=== PATIENT | female | born 1995 | race Caucasian/White ===

== ENCOUNTER 2016-09-11 00:19 | Emergency (ER) | payer MEDICAID ==
[~2016-09-11] VITALS: Ht 165.1 cm; Wt 91.0 kg
[~2016-09-11 00:19] MED LIST: LITH150C PO; SERT25TA PO; ZIPR60CA2 PO
[2016-09-11] MEDS ORDERED: ONDANSETRON 2MG/ML, 2ML ONE (00:49)
[2016-09-11] MEDS ORDERED: ONDANSETRON 2MG/ML, 2ML IVPush ONE (01:00)
[2016-09-11] MEDS ORDERED: SODIUM CHLORIDE 0.9% 1,000ML IVBOLUS ONE (01:00)
[2016-09-11 01:24] LABS: HCG UR OBC PASS
[2016-09-11 01:34] LABS: BLOOD UREA NITROGEN 17 mg/dL (7-18)
[2016-09-11 01:39] LABS: ASPARTATE AMINO TRANSFERASE 12 U/L (15-37)
[2016-09-11 03:24] VITALS: BP 109/63
== END 2016-09-11 03:28 | disposition home or self-care (01) ==
LOC: ED 01:02
DX: R19.7 Diarrhea, unspecified (principal); R11.2 Nausea with vomiting, unspecified; F17.200 Nicotine dependence, unspecified, uncomplicated; K21.9 Gastro-esophageal reflux disease without esophagitis
CPT/HCPCS: 36415; 80053; 81001; 81025; 83690; 85025; 96361; 96374; 99285; J2405; J7030

== ENCOUNTER 2016-11-14 20:54 | Emergency (ER) | payer MEDICAID ==
[~2016-11-14] VITALS: Ht 165.1 cm; Wt 88.4 kg
[2016-11-14 21:06] VITALS: BP 121/79
[2016-11-14 21:49] LABS: DAU SCREEN DISCLAIMER
[2016-11-14] MEDS ORDERED: LORazepam 1MG TABLET PO ONE (22:00)
[2016-11-14 22:07] LABS: ASPARTATE AMINO TRANSFERASE 22 U/L (15-37); BLOOD UREA NITROGEN 18 mg/dL (7-18)
[2016-11-14] MEDS ORDERED: LORazepam 1MG TABLET ONE (22:08)
[2016-11-14 22:14] LABS: ACETAMINOPHEN < 2 mcg/mL (10-30)
[2016-11-14] MEDS ORDERED: FAMOTIDINE 20 MG TABLET PO ONE (22:30)
[2016-11-14] MEDS ORDERED: FAMOTIDINE 20 MG TABLET ONE (22:30)
== END 2016-11-15 02:17 | disposition home or self-care (01) ==
LOC: ED 23:38
DX: F29 Unspecified psychosis not due to a substance or known physiological condition (principal); F41.9 Anxiety disorder, unspecified; Z72.89 Other problems related to lifestyle; F31.9 Bipolar disorder, unspecified
CPT/HCPCS: 36415; 80053; 80307; 80329; 84703; 85025; 99284; G0480

== ENCOUNTER 2017-03-10 12:58 | Emergency (ER) | payer MEDICAID ==
[~2017-03-10] VITALS: Ht 165.1 cm; Wt 91.8 kg
[2017-03-10 13:00] VITALS: BP 113/72
[2017-03-10] MEDS ORDERED: BACITRACIN ZINC OINT 500U/GM, 0.9 GM ONE (13:48)
== END 2017-03-10 13:55 | disposition home or self-care (01) ==
LOC: ED 13:49
DX: L03.115 Cellulitis of right lower limb (principal)
CPT/HCPCS: 99283

== ENCOUNTER 2017-03-25 09:12 | Emergency (ER) | payer MEDICAID ==
[~2017-03-25] VITALS: Ht 165.1 cm; Wt 92.6 kg
[2017-03-25] MEDS ORDERED: METOCLOPRAMIDE 5 MG/ML, 2ML IVPush ONE (10:00)
[2017-03-25] MEDS ORDERED: SODIUM CHLORIDE 0.9% 1,000ML IVBOLUS ONE (10:00)
[2017-03-25] MEDS ORDERED: MORPHINE SULFATE 4 MG/ML, 1ML IVPush PRN (10:00)
[2017-03-25] MEDS ORDERED: MAALOX/HYOSCYAMINE/LIDOCAINE 45 ML BTL PO ONE (10:00)
[2017-03-25] MEDS ORDERED: FAMOTIDINE 20 MG/2 ML IVP ONE (10:00)
[2017-03-25] MEDS ORDERED: DIPHENHYDRAMINE 50 MG/ML, 1ML IVPush ONE (10:00)
[2017-03-25] MEDS ORDERED: SODIUM CHLORIDE FLUSH 10ML SYR IVF ONE (10:00)
[2017-03-25 10:02] LABS: ASPARTATE AMINO TRANSFERASE 18 U/L (15-37); BLOOD UREA NITROGEN 16 mg/dL (7-18); HEMATOCRIT 43.4 % (34.6-47.8); HEMOGLOBIN 14.7 g/dL (11.7-16.4); WHITE BLOOD COUNT 13.3 x10^3/uL (3.4-10)
[2017-03-25 10:15] VITALS: BP 111/67
== END 2017-03-25 11:13 | disposition home or self-care (01) ==
LOC: ED 09:46
DX: K29.00 Acute gastritis without bleeding (principal); K21.9 Gastro-esophageal reflux disease without esophagitis
CPT/HCPCS: 36415; 76700; 80053; 83690; 85025; 86677; 96361; 96374; 96375; 99285; J1200; J2765; J7030; S0028

== ENCOUNTER 2017-04-20 15:49 | Emergency (ER) | payer MEDICAID ==
[~2017-04-20] VITALS: Ht 165.1 cm; Wt 91.4 kg
[2017-04-20] MEDS ORDERED: KETOROLAC 30 MG/1 ML IM ONE (17:00)
[2017-04-20 17:05] LABS: CULTURE INDICATED? YES; MICROSCOPIC INDICATED
[2017-04-20] MEDS ORDERED: METHOCARBAMOL 750 MG TABLET PO ONE (17:30)
[2017-04-20] MEDS ORDERED: HYDROcodone/APAP 5/325 TABLET PO ONE (17:30)
[2017-04-20] MEDS ORDERED: DIAZEPAM 5 MG TABLET PO ONE (17:30)
[2017-04-20] MEDS ORDERED: METHOCARBAMOL 750 MG TABLET ONE (18:13)
[2017-04-20] MEDS ORDERED: KETOROLAC 30 MG/1 ML ONE (18:13)
[2017-04-20] MEDS ORDERED: IBUPROFEN 200 MG TABLET ONE (18:37)
[2017-04-20 18:56] VITALS: BP 110/54
[2017-04-20] MEDS ORDERED: IBUPROFEN 200 MG TABLET PO ONE (19:00)
== END 2017-04-20 18:58 | disposition home or self-care (01) ==
LOC: ED 18:40
DX: N12 Tubulo-interstitial nephritis, not specified as acute or chronic (principal)
CPT/HCPCS: 72072; 74176; 81001; 87086; 99285

== ENCOUNTER 2017-07-22 23:07 | Observation (INO) | payer MEDICAID ==
[~2017-07-22] VITALS: Ht 165.1 cm; Wt 91.0 kg
[2017-07-22 23:46] LABS: BASOPHILS # (AUTO) 0.08 x10^3/uL (0-0.1); BASOPHILS % (AUTO) 1 % (0-1); EOSINOPHILS # (AUTO) 0.29 x10^3/uL (0-0.4); EOSINOPHILS % (AUTO) 3 % (1-7); LYMPHOCYTES # (AUTO) 3.64 x10^3/uL (1-3.4); LYMPHOCYTES % (AUTO) 39 % (22-44); MD NO; MEAN CORPUSCULAR HEMOGLOBIN 29.4 pg (27.0-34.8); MEAN CORPUSCULAR VOLUME 86.6 fL (80-100); MEAN PLATELET VOLUME 8.7 fL (7.4-10.4); MONOCYTES # (AUTO) 0.79 x10^3/uL (0.2-0.8); MONOCYTES % (AUTO) 8 % (2-9); NEUTROPHILS # (AUTO) 4.65 x10^3/uL (1.8-6.8); NEUTROPHILS % (AUTO) 49 % (42-75); PLATELET COUNT 257 x10^3/uL (130-400); RED BLOOD COUNT 4.63 x10^6/uL (3.82-5.3); RED CELL DISTRIBUTION WIDTH 14.9 % (9.6-15.2)
[2017-07-22 23:58] LABS: ALANINE AMINOTRANSFERASE 23 U/L (12-78); ALBUMIN 3.2 g/dL (3.4-5.0); ANION GAP 9 mmol/L (5-15); CALCIUM 8.5 mg/dL (8.5-10.1); CHLORIDE 113 mmol/L (98-107); SALICYLATE LEVEL < 1.7 mg/dL (2.8-20.0)
[2017-07-22 23:59] LABS: ACETAMINOPHEN < 2 mcg/mL (10-30)
[2017-07-23 00:02] LABS: BILIRUBIN,TOTAL 0.8 mg/dL (0.2-1.0)
[2017-07-23 00:03] LABS: ALKALINE PHOSPHATASE 58 U/L (45-117); TOTAL PROTEIN 6.4 g/dL (6.4-8.2)
[2017-07-23 00:41] LABS: AMPHETAMINE SCREEN, URINE Negative (Negative); BARBITURATE SCREEN, URINE Negative (Negative); BENZODIAZEPINE SCREEN, URINE Negative (Negative); CANNABINOID SCREEN, URINE Negative (Negative); COCAINE SCREEN, URINE Negative (Negative); METHADONE SCREEN, URINE Negative (Negative); OPIATE SCREEN, URINE Negative (Negative)
[2017-07-23] MEDS ORDERED: ACETAMINOPHEN 325 MG TABLET PO PRN (08:00)
[2017-07-23] MEDS ORDERED: DIPHENHYDRAMINE 50 MG CAPSULE PO PRN (08:00)
[2017-07-23] MEDS ORDERED: ONDANSETRON ODT 4 MG PO PRN (08:00)
[2017-07-23 08:28] VITALS: BP 101/68
[2017-07-23] MEDS ORDERED: LORazepam 0.5MG TABLET PO PRN (09:00)
== END 2017-07-23 15:05 ==
LOC: ED 23:59 → EDIP 07-23 06:38 → 3E 07-23 08:26
PROVIDERS: ADMIT Internal Medicine; ATTEND Internal Medicine
DX: R45.851 Suicidal ideations (principal); F31.9 Bipolar disorder, unspecified; F25.9 Schizoaffective disorder, unspecified; F41.1 Generalized anxiety disorder; F33.2 Major depressive disorder, recurrent severe without psychotic features; F43.10 Post-traumatic stress disorder, unspecified; K21.9 Gastro-esophageal reflux disease without esophagitis
CPT/HCPCS: 36415; 80053; 80307; 80329; 84703; 85025; 99285; G0378; G0480

== ENCOUNTER 2017-12-14 18:10 | Emergency (ER) | payer MEDICAID ==
[~2017-12-14] VITALS: Ht 165.1 cm; Wt 93.2 kg
[2017-12-14] MEDS ORDERED: ONDANSETRON ODT 4 MG PO ONE (19:00)
[2017-12-14] MEDS ORDERED: MAALOX/HYOSCYAMINE/LIDOCAINE 45 ML BTL PO ONE (19:00)
[2017-12-14] MEDS ORDERED: FAMOTIDINE 20 MG TABLET PO ONE (19:00)
[2017-12-14 19:02] LABS: MICROSCOPIC INDICATED
[2017-12-14 19:03] LABS: CULTURE INDICATED? YES
[2017-12-14 19:11] LABS: BASOPHILS # (AUTO) 0.09 x10^3/uL (0-0.1); BASOPHILS % (AUTO) 1 % (0-1); EOSINOPHILS # (AUTO) 0.22 x10^3/uL (0-0.4); EOSINOPHILS % (AUTO) 2 % (1-7); LYMPHOCYTES # (AUTO) 3.32 x10^3/uL (1-3.4); LYMPHOCYTES % (AUTO) 30 % (22-44); MD NO; MEAN CORPUSCULAR HEMOGLOBIN 30.1 pg (27.0-34.8); MEAN CORPUSCULAR HGB CONC 34.2 g/dL (32.4-35.8); MEAN CORPUSCULAR VOLUME 88.3 fL (80-100); MEAN PLATELET VOLUME 8.9 fL (7.4-10.4); MONOCYTES # (AUTO) 0.78 x10^3/uL (0.2-0.8); MONOCYTES % (AUTO) 7 % (2-9); NEUTROPHILS # (AUTO) 6.79 x10^3/uL (1.8-6.8); NEUTROPHILS % (AUTO) 61 % (42-75); PLATELET COUNT 266 x10^3/uL (130-400); RED BLOOD COUNT 4.55 x10^6/uL (3.82-5.3); RED CELL DISTRIBUTION WIDTH 13.9 % (9.6-15.2)
[2017-12-14 19:23] LABS: ALANINE AMINOTRANSFERASE 23 U/L (12-78); ALBUMIN 3.1 g/dL (3.4-5.0); ANION GAP 6 mmol/L (5-15); CALCIUM 8.7 mg/dL (8.5-10.1); CHLORIDE 110 mmol/L (98-107)
[2017-12-14 19:28] LABS: ALKALINE PHOSPHATASE 59 U/L (45-117); BILIRUBIN,TOTAL 0.4 mg/dL (0.2-1.0); CREATININE 0.91 mg/dL (0.55-1.02); TOTAL PROTEIN 6.4 g/dL (6.4-8.2)
[2017-12-14] MEDS ORDERED: MAALOX/HYOSCYAMINE/LIDOCAINE 45 ML BTL ONE (20:02)
[2017-12-14] MEDS ORDERED: FAMOTIDINE 20 MG TABLET ONE (20:02)
[2017-12-14] MEDS ORDERED: ONDANSETRON ODT 4 MG ONE (20:02)
[2017-12-14 20:36] VITALS: BP 124/86
== END 2017-12-14 22:45 | disposition home or self-care (01) ==
LOC: ED 22:42
DX: K21.9 Gastro-esophageal reflux disease without esophagitis (principal); F31.9 Bipolar disorder, unspecified; F17.200 Nicotine dependence, unspecified, uncomplicated; K29.00 Acute gastritis without bleeding
CPT/HCPCS: 36415; 76700; 80053; 81001; 83690; 84703; 85025; 87086; 93005; 99285; Q0162

== ENCOUNTER 2018-02-28 17:49 | Observation (INO) | payer MEDICAID ==
[~2018-02-28] VITALS: Ht 172.7 cm; Wt 68.0 kg
[2018-02-28 18:35] LABS: HCG UR SG 1.036 (1.003-1.030)
[2018-02-28 18:36] LABS: ALBUMIN 3.5 g/dL (3.4-5.0); ANION GAP 8 mmol/L (5-15); CALCIUM 8.9 mg/dL (8.5-10.1); CHLORIDE 111 mmol/L (98-107)
[2018-02-28 18:37] LABS: SALICYLATE LEVEL < 1.7 mg/dL (2.8-20.0)
[2018-02-28 18:40] LABS: ACETAMINOPHEN < 2 mcg/mL (10-30)
[2018-02-28 18:47] LABS: AMPHETAMINE SCREEN, URINE Positive (Negative); BARBITURATE SCREEN, URINE Negative (Negative); BENZODIAZEPINE SCREEN, URINE Negative (Negative); CANNABINOID SCREEN, URINE Positive (Negative); COCAINE SCREEN, URINE Negative (Negative); METHADONE SCREEN, URINE Negative (Negative); OPIATE SCREEN, URINE Negative (Negative)
[2018-02-28 18:52] LABS: BASOPHILS # (AUTO) 0.05 x10^3/uL (0-0.1); BASOPHILS % (AUTO) 1 % (0-1); EOSINOPHILS # (AUTO) 0.34 x10^3/uL (0-0.4); EOSINOPHILS % (AUTO) 4 % (1-7); LYMPHOCYTES # (AUTO) 2.89 x10^3/uL (1-3.4); LYMPHOCYTES % (AUTO) 30 % (22-44); MD NO; MEAN CORPUSCULAR HEMOGLOBIN 29.7 pg (27.0-34.8); MEAN CORPUSCULAR HGB CONC 33.9 g/dL (32.4-35.8); MEAN CORPUSCULAR VOLUME 87.4 fL (80-100); MEAN PLATELET VOLUME 9.4 fL (7.4-10.4); MONOCYTES # (AUTO) 0.84 x10^3/uL (0.2-0.8); MONOCYTES % (AUTO) 9 % (2-9); NEUTROPHILS # (AUTO) 5.56 x10^3/uL (1.8-6.8); NEUTROPHILS % (AUTO) 58 % (42-75); PLATELET COUNT 271 x10^3/uL (130-400); RED BLOOD COUNT 5.14 x10^6/uL (3.82-5.3); RED CELL DISTRIBUTION WIDTH 14.6 % (9.6-15.2)
[2018-02-28] MEDS ORDERED: ONDANSETRON ODT 4 MG PO PRN (21:00)
[2018-02-28 21:17] VITALS: BP 117/77
[2018-02-28] MEDS: LORazepam 1MG TABLET PO PRN (21:33)
[2018-02-28] MEDS: ACETAMINOPHEN 325 MG TABLET PO PRN (21:33)
[2018-03-01] MEDS: LORazepam 1MG TABLET PO PRN (08:09)
[2018-03-01] MEDS: ACETAMINOPHEN 325 MG TABLET PO PRN (08:13)
[2018-03-01 08:33] VITALS: BP 101/62
== END 2018-03-01 14:29 ==
LOC: ED 18:31 → EDIP 20:35 → SUATTDRO 20:39 → 2N 21:15
PROVIDERS: ADMIT Hospitalist; ATTEND Hospitalist
DX: R45.851 Suicidal ideations (principal); F32.9 Major depressive disorder, single episode, unspecified; F12.10 Cannabis abuse, uncomplicated; F15.10 Other stimulant abuse, uncomplicated; F25.9 Schizoaffective disorder, unspecified; K21.9 Gastro-esophageal reflux disease without esophagitis; F41.1 Generalized anxiety disorder; Z81.8 Family history of other mental and behavioral disorders
CPT/HCPCS: 36415; 80048; 80307; 80329; 81025; 82040; 82962; 85025; 99285; G0378; G0480

== ENCOUNTER 2020-01-30 10:23 | Emergency (ER) | payer MEDICAID ==
[~2020-01-30] VITALS: Ht 162.6 cm; Wt 52.0 kg
--- NOTE | 2020-01-30 10:52 | NUR ---
PATIENT ARRIVES FROM 30 DAYS AT HALFWAY @[facility] AND [facility] STATES LAST TWO DAYS ON SI WATCH THERE; SHE ARRIVES WITH L2K. SHE STATES SHE IS SUICIDAL AND WANTS TO GO TO [place], HAS A DEAL WITH HER MOM. STATES THAT SHE HAS NO PLAN, NO ACCESS TO [employer] AND NO PREPARATIONS MADE. SHE REQUESTS TV AND SNACKS X4. OBTAINED AND SENT URINE CLEAN CATCH AND ONE BAG BELONGINGS LOCKED IN LOCKER. MENTAL HEALTH HERE TO VISIT AT THIS TIME.
[2020-01-30 11:33] VITALS: BP 115/78
== END 2020-01-30 11:42 | disposition home or self-care (01) ==
LOC: ED 11:04
DX: F29 Unspecified psychosis not due to a substance or known physiological condition (principal); Z72.9 Problem related to lifestyle, unspecified; F25.9 Schizoaffective disorder, unspecified; K21.9 Gastro-esophageal reflux disease without esophagitis; F17.200 Nicotine dependence, unspecified, uncomplicated
CPT/HCPCS: 99283

== ENCOUNTER 2020-06-20 11:10 | Emergency (ER) | payer MEDICAID ==
[~2020-06-20] VITALS: Ht 167.6 cm; Wt 75.0 kg
[2020-06-20] MEDS ORDERED: LORazepam 1MG TABLET ONE (11:41)
--- NOTE | 2020-06-20 11:46 | NUR ---
PT MEDICATED WITH ATIVAN ORDERED BY DR. MELENDEZ. PT RESTING. VS STABLE. WARM BLANKETS PROVIDED PATIENT IS SHIVERING. SIDE RAILS UP X 2 FOR SAFETY. CALL BUTTON WITHIN REACH. PT REMAINS ON CONTINUOUS SPO2 MONITOR.
[2020-06-20] MEDS ORDERED: LORazepam 1MG TABLET PO ONE (12:00)
[2020-06-20 12:11] LABS: BASOPHILS % (AUTO) 1 % (0-1); EOSINOPHILS % (AUTO) 5 % (1-7); LYMPHOCYTES % (AUTO) 30 % (22-44); MEAN CORPUSCULAR HEMOGLOBIN 31.2 pg (27.0-34.8); MEAN CORPUSCULAR HGB CONC 33.5 g/dL (32.4-35.8); MEAN PLATELET VOLUME 8.6 fL (7.4-10.4); MONOCYTES % (AUTO) 13 % (2-9); NEUTROPHILS % (AUTO) 52 % (42-75); PLATELET COUNT 262 x10^3/uL (130-400); RED BLOOD COUNT 4.16 x10^6/uL (3.82-5.3); RED CELL DISTRIBUTION WIDTH 15.1 % (9.6-15.2)
[2020-06-20 12:16] LABS: MD NO
[2020-06-20 12:20] LABS: ALANINE AMINOTRANSFERASE 139 U/L (12-78); ALBUMIN 3.7 g/dL (3.4-5.0); ANION GAP 6 mmol/L (5-15); CALCIUM 8.7 mg/dL (8.5-10.1); CHLORIDE 111 mmol/L (98-107); CREATININE 0.74 mg/dL (0.55-1.02)
[2020-06-20 12:23] LABS: ALKALINE PHOSPHATASE 81 U/L (45-117); BILIRUBIN,TOTAL 0.9 mg/dL (0.2-1.0); TOTAL PROTEIN 7.5 g/dL (6.4-8.2)
[2020-06-20 12:27] LABS: SALICYLATE LEVEL < 1.7 mg/dL (2.8-20.0)
[2020-06-20 12:34] LABS: CREATINE KINASE, TOTAL 1286 U/L (26-192)
[2020-06-20] MEDS ORDERED: SODIUM CHLORIDE 0.9% 1,000ML IVBOLUS ONE (13:00)
[2020-06-20] MEDS ORDERED: LORazepam 2 MG/ML, 1ML IVPush ONE (13:00)
[2020-06-20] MEDS ORDERED: LORazepam 2 MG/ML, 1ML ONE (13:27)
--- NOTE | 2020-06-20 13:34 | NUR ---
LUNCH TRAY SERVED TO PATIENT. PIV STARTED. PT MEDICATED PER JUN. PT WAS AMBULATORY TO THE BATHROOM WITH A STEADY GATE. SHE CONTINUES TO HAVE SOME NON-SENSICLE CONVERSATION BUT DID HAVE SOME COHERENT SPEECH WELL AND WAS ASKING FOR FOOD.
--- NOTE | 2020-06-20 15:29 | NUR ---
TASK RN: PATIENT RESTING IN GURNEY WITH EYES CLOSED, RESP EVEN AND UNLABORED, CALL LIGHT WITHIN REACH.
[2020-06-20 16:40] VITALS: BP 118/69
--- NOTE | 2020-06-20 16:41 | NUR ---
CLOTHED PATIENT WITH CLEAN CLOTHING IN PREPARATION FOR DISCHARGE, HOWEVER, SHE REMAINS TOO DROWSY AND DISORIENTED FOR SAFE DISCHARGE AND IS NOT YET READY. VS UPDATED AND WNL, WITH THE EXCEPTION OF MILD TACHYCARDIA.
--- NOTE | 2020-06-20 18:00 | NUR ---
PT SLEEPING. VS STABLE.
--- NOTE | 2020-06-20 18:45 | NUR ---
Patient given discharge instructions and they have confirmed that they understand the instructions. Patient ambulatory with steady gait.
== END 2020-06-20 19:07 | disposition home or self-care (01) ==
LOC: ED 14:55
DX: F15.10 Other stimulant abuse, uncomplicated (principal); R44.3 Hallucinations, unspecified; R41.82 Altered mental status, unspecified
CPT/HCPCS: 36415; 80053; 80299; 80320; 80329; 82550; 84703; 85025; 96374; 99283; J2060; J7030; G0480

== ENCOUNTER 2020-06-21 05:46 | Emergency (ER) | payer MEDICAID ==
[~2020-06-21] VITALS: Ht 165.1 cm; Wt 77.0 kg
[2020-06-21 05:47] VITALS: BP 119/76
--- NOTE | 2020-06-21 05:56 | NUR ---
INITIAL PT CONACT. PT PRESENTS TO ED C/O SUICIDAL THOUGHTS WITHOUT A PLAN, "I CANT TAKE CARE OF MYSELF AND CANT GET WARM. OH YEAH, I WAS HERE YESTERDAY FOR BEING CRAZY BUT I WAS SENT AWAY". PT SUPINE ON GURNEY, ALL BELONGINGS PLACED IN BAG AND PLACED IN APPROPRIATE LOCKER. PT CHANGED INTO GOWN. AWAITING ERP. SAFETY PRECAUTIONS IN PLACE. WILL CONTINUE TO MONITOR.
[2020-06-21] MEDS ORDERED: LORazepam 1MG TABLET PO ONE (06:30)
--- NOTE | 2020-06-21 06:57 | NUR ---
REPORT GIVEN TO KENDY RUIZ
[2020-06-21 06:59] LABS: ANION GAP 7 mmol/L (5-15); CHLORIDE 115 mmol/L (98-107); CREATININE 0.64 mg/dL (0.55-1.02)
--- NOTE | 2020-06-21 06:59 | NUR ---
i am assuming care of this pt from kareem (rn) at this time. sbar report was exchanged at the bedside.
[2020-06-21 07:02] LABS: CREATINE KINASE, TOTAL 485 U/L (26-192)
[2020-06-21 07:03] LABS: SALICYLATE LEVEL < 1.7 mg/dL (2.8-20.0)
--- NOTE | 2020-06-21 08:32 | NUR ---
PT IS CONSULTING W MENTAL HEALTH PROFESSIONAL VIA TELEPSYCH.
--- NOTE | 2020-06-21 09:04 | NUR ---
PER ERP, WE ARE TO D/C THIS PT. I WILL ENSURE A SAFE DISCHARGE WHEN ORDERS ARE PLACED.
--- NOTE | 2020-06-21 09:56 | NUR ---
pt provided with clean clothing. after changing she elpoed from room without further education. she ambulated steadily as she left epressing gratitude for the care she received.
== END 2020-06-21 09:59 | disposition home or self-care (01) ==
LOC: ED 05:58
DX: F11.20 Opioid dependence, uncomplicated (principal); K21.9 Gastro-esophageal reflux disease without esophagitis; R45.851 Suicidal ideations; Z76.5 Malingerer [conscious simulation]; F17.200 Nicotine dependence, unspecified, uncomplicated
CPT/HCPCS: 36415; 80048; 80299; 80320; 80329; 82550; 93005; 99284; G0480

== ENCOUNTER 2020-08-09 00:14 | Observation (INO) | payer MEDICAID, OTHER ==
[~2020-08-09] VITALS: Ht 165.1 cm; Wt 65.0 kg
[2020-08-09] MEDS ORDERED: DIPHENHYDRAMINE 50 MG/ML, 1ML ONE (00:24)
[2020-08-09] MEDS ORDERED: HALOPERIDOL 5 MG/ML ONE (00:24)
[2020-08-09] MEDS ORDERED: LORazepam 2 MG/ML, 1ML ONE (00:25)
[2020-08-09] MEDS ORDERED: HALOPERIDOL 5 MG/ML IM ONE (00:30)
[2020-08-09] MEDS ORDERED: LORazepam 2 MG/ML, 1ML IM ONE (00:30)
[2020-08-09] MEDS ORDERED: DIPHENHYDRAMINE 50 MG/ML, 1ML IM ONE (00:30)
--- NOTE | 2020-08-09 00:59 | NUR ---
PT AMBULATORY INTO ER C [facility]. PD CALLED EMS D/T PT ERRATIC BEHAVIOR (HALLUCINATING & DEFECATING ON FLOOR OF MOTEL SHE LIVES AT). PT REPORTS HX OF [facility] TO EMS. UNABLE TO OBTAIN HX FROM PT D/T MULT ANSWERS WHEN EVALUATED. 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 PT ATTEMPTING TO LEAVE ED. SECURITY CALLED, PLACED IN 4 PT LEATHER RESTRAINTS TO DO AGGRESSIVE BEHAVIOR & THREATENING TO LEAVE. PT REMOVED HER OWN 2 SHIRTS, BUT REFUSED TO REMOVE PANTS & BRA (ITEMS CUT OFF AND PLACED IN BAG OF BELONGINS & PLACED IN LOCKER). PT HAS DISCHEVELED APPERANCE, POOR HYGIENE, APPEARS SUN BURNT ON FACE. MEDS PER MAR ADMIN. PT CONTINUES TO SHOUT AT STAFF. PHLEB AT BS, CONTINUES TO THRASH ON CART, WILL HOLD UNTIL PT MORE CALM. LIGHTS TURNED DOWN. WILL CTM. SITTER OUTSIDE OF ROOM.
--- NOTE | 2020-08-09 02:06 | NUR ---
LABS OBTAINED C ASSITANCE FROM [facility] STAFF MEMEBERS. PT CONTINUES TO THRAST & SCREAM OUT AT STAFF.
[2020-08-09 02:10] LABS: BASOPHILS % (AUTO) 1 % (0-1); EOSINOPHILS % (AUTO) 3 % (1-7); LYMPHOCYTES % (AUTO) 38 % (22-44); MD NO; MEAN CORPUSCULAR HEMOGLOBIN 30.1 pg (27.0-34.8); MEAN CORPUSCULAR HGB CONC 33.2 g/dL (32.4-35.8); MEAN PLATELET VOLUME 8.7 fL (7.4-10.4); MONOCYTES % (AUTO) 9 % (2-9); NEUTROPHILS % (AUTO) 50 % (42-75); PLATELET COUNT 285 x10^3/uL (130-400); RED BLOOD COUNT 4.53 x10^6/uL (3.82-5.3); RED CELL DISTRIBUTION WIDTH 13.9 % (9.6-15.2)
[2020-08-09 02:22] LABS: ALANINE AMINOTRANSFERASE 55 U/L (12-78); ALBUMIN 3.4 g/dL (3.4-5.0); ANION GAP 7 mmol/L (5-15); CHLORIDE 110 mmol/L (98-107); CREATININE 0.83 mg/dL (0.55-1.02)
[2020-08-09 02:24] LABS: SALICYLATE LEVEL < 1.7 mg/dL (2.8-20.0)
[2020-08-09 02:27] LABS: ALKALINE PHOSPHATASE 66 U/L (45-117); BILIRUBIN,TOTAL 0.8 mg/dL (0.2-1.0); TOTAL PROTEIN 6.9 g/dL (6.4-8.2)
--- NOTE | 2020-08-09 02:35 | NUR ---
PT REDUCED TO 2PT LEATHER RESTRAINTS. REMAINS IN L HAND & RLE. SKIN INTACT. SITTER OUTSIDE OF ROOM. WILL CTM.
--- NOTE | 2020-08-09 03:40 | NUR ---
PT RESTING ON CART, RR EVEN NON LABORED. EASILY WOKEN, BECOMING AGGRESSIVE. WILL CTM.
--- NOTE | 2020-08-09 04:29 | NUR ---
PTS RESTRAINTS REMOVED. SKIN PWD. SLEEPING ON CART, RR EVEN NON LABORED. SITTER AT BS.
--- NOTE | 2020-08-09 05:07 | NUR ---
ENZO RN: PACKET FAXED TO [facility] [place]
--- NOTE | 2020-08-09 06:56 | NUR ---
ASSUMED CARE OF PT. PT IS SLEEPING, CHEST RISE OBSERVED.
--- NOTE | 2020-08-09 08:54 | NUR ---
brought patient her breakfast, she is still sleepy at this time.
--- NOTE | 2020-08-09 11:39 | NUR ---
TWO CUPS OF WATER PROVIDED TO PATIENT.
--- NOTE | 2020-08-09 11:57 | NUR ---
PT SLEEPING. LUNCH TRAY ORDERED.
[2020-08-09 12:16] VITALS: BP 142/92
--- NOTE | 2020-08-09 13:37 | NUR ---
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 WILL RETURN.
[2020-08-09] MEDS ORDERED: RISPERIDONE 1 MG TABLET PO PRN (15:00)
[2020-08-09] MEDS ORDERED: RISPERIDONE 2 MG TABLET ONE (15:46)
--- NOTE | 2020-08-09 16:47 | NUR ---
Pt is sleeping currently, cooperative with care.
[2020-08-09 17:04] LABS: AMPHETAMINE SCREEN, URINE Positive (Negative); BARBITURATE SCREEN, URINE Negative (Negative); BENZODIAZEPINE SCREEN, URINE Negative (Negative); CANNABINOID SCREEN, URINE Positive (Negative); COCAINE SCREEN, URINE Negative (Negative); METHADONE SCREEN, URINE Negative (Negative); OPIATE SCREEN, URINE Negative (Negative)
--- NOTE | 2020-08-09 17:34 | NUR ---
THROUGHPUT: PT HAS INSURANCE, LEGAL HOLD AND MEDICALLY CLEARED, OBTAINED URINE AND SENT PACKET TO [facility]
--- NOTE | 2020-08-09 18:15 | NUR ---
THROUGHPUT: PT ACCEPTANCE FROM MARII AT [facility], DR. COSTA, PACKET MADE, COBRA SIGNED. SPOKE WITH KIT AT [facility] ACCEPTED, CALLED [facility]ARDY SPOKE WITH YANE, ACCEPTANCE, COUNTER SUPPLY WORKER AT [id number]
--- NOTE | 2020-08-09 18:29 | NUR ---
REPORT GIVEN TO ELVIRA AT [facility]
--- NOTE | 2020-08-09 19:00 | NUR ---
RECEIVED REPORT FROM DAY RN, AND PT ASLEEP AT THIS TIME, AND AWAKENS EASILY. [facility] TO ARRIVE AT 1900 TO TRANSFER PT. PT IN NO ACUTE DISTRESS. STATES SHE NEEDS TO GO TO A PSYCH FACILITY.
--- NOTE | 2020-08-09 19:05 | NUR ---
[facility] AT BEDSIDE, AND REPORT GIVEN TO MEDICS, AND CARE TRANSFERRED. PT TRANSFERRED TO PSYCH FACILITY. NO DISTRESS, AND PT AMBULATORY.
[2020-08-09] MEDS ORDERED: RISPERIDONE 2 MG TABLET PO SCH (21:00)
== END 2020-08-09 19:40 | disposition home or self-care (01) ==
LOC: ED 01:37 → EDIP 02:37 → UNDOADMOB 02:37 → EDIP 02:38 → UNDOADMOB 02:53 → EDIP 02:53 → UNDODISOB 19:40
PROVIDERS: ADMIT Emergency Medicine; ATTEND Emergency Medicine
DX: F20.9 Schizophrenia, unspecified (principal); R45.851 Suicidal ideations; F41.8 Other specified anxiety disorders; F28 Other psychotic disorder not due to a substance or known physiological condition; F15.20 Other stimulant dependence, uncomplicated; K21.9 Gastro-esophageal reflux disease without esophagitis; F17.210 Nicotine dependence, cigarettes, uncomplicated; Z72.9 Problem related to lifestyle, unspecified; Z78.1 Physical restraint status; Z79.899 Other long term (current) drug therapy
CPT/HCPCS: 36415; 80053; 80299; 80307; 80320; 80329; 84703; 85025; 96372; 99284; G0378; J1200; J1630; J2060; G0480